=== PATIENT | male | born 1940 | race Hispanic/Latino ===

== ENCOUNTER → 2024-07-10 | Day surgery (SDC) | payer MEDICARE ==
[~2024-07-10] MED LIST: ACETAMINOPHEN 1000 MG/100 ML 100 ML IV ONE; ATORVASTATIN CA10 MG PO; BENZONATATE100 MG PO; CEFTRIAXONE 1 GM VIAL ONE; DEXAMETHASONE SOD PHOS INJ 4 MG/ML SDV ONE; EPHEDRINE SULFATE INJ 50 MG/ML VIAL ONE; FAMOTIDINE20 MG PO; FENTANYL CITRATE/PF 100MCG/2 ML INJ ONE; LEVOTHYROXINE; LIDOCAINE HCL 2% LOCAL INJ 5 ML SDV VIAL INJ ONE; MICARDIS20 MG PO; ONDANSETRON HCL INJ 2MG/ML 2ML 2 MG/ML VIAL ONE; PHENYLEPHRINE HCL 1% 10 MG/ML VIAL ONE; PROPOFOL IV EMULSION 10 MG/ML 20 ML VIAL ONE; ROBITUSSIN PO; [UNRECOGNIZED DRUG - OTHER] PO
[2024-07-10 06:27] LABS: BASOPHILS % 0.7 % (0.0-1.0); EOSINOPHILS # (AUTO) 0.3 (0.0-0.4); EOSINOPHILS % 4.2 % (0.0-6.0); HEMOGLOBIN 13.5 g/dL (14.0-18.0); LYMPHOCYTES # (AUTO) 1.7 (1.0-3.2); LYMPHOCYTES % 27.3 % (18.0-39.1); MEAN CORPUSCULAR HEMOGLOBIN 30.5 pg (28-32); MEAN CORPUSCULAR HGB CONC 32.1 g/dL (31-35); MONOCYTES # (AUTO) 0.6 (0.2-0.8); MONOCYTES % 9.1 % (4.4-11.3); NEUTROPHILS # (AUTO) 3.6 (2.1-6.9); NEUTROPHILS % 58.5 % (38.7-80.0); PLATELET COUNT 155 x10e3/uL (140-360); RED BLOOD COUNT 4.42 x10e6/uL (4.3-5.7); WHITE BLOOD COUNT 6.15 x10e3/uL (4.8-10.8)
[2024-07-10 06:44] LABS: ALBUMIN/GLOBULIN RATIO 1.1 (0.8-2.0); ANION GAP 15.9 mmol/L (8-16); BILIRUBIN,TOTAL 1.3 mg/dL (0.2-1.2); CALCIUM 9.4 mg/dL (8.4-10.2); CREATININE, SERUM 0.92 mg/dL (0.72-1.25); POTASSIUM 3.9 mmol/L (3.5-5.1); TOTAL PROTEIN 7.7 g/dL (6.5-8.1)
[2024-07-10] MEDS: LACTATED RINGER'S 1,000 ML ONE (06:45)
[2024-07-10 08:18] VITALS: TEMP 98.1
[2024-07-10] MEDS: PHENAZOPYRIDINE HCL 100 MG TAB ONE (08:35)
[2024-07-10 09:05] VITALS: BP 142/68; PULSE 78; RESP 14; O2SAT 99
== END | disposition home or self-care (01) ==
LOC: OR 05:42
PROVIDERS: ATTEND Urology
DX: C67.9 Malignant neoplasm of bladder, unspecified (principal); N13.70 Vesicoureteral-reflux, unspecified; Z90.6 Acquired absence of other parts of urinary tract; N13.30 Unspecified hydronephrosis; N39.0 Urinary tract infection, site not specified; N40.0 Benign prostatic hyperplasia without lower urinary tract symptoms; I10 Essential (primary) hypertension; E78.5 Hyperlipidemia, unspecified; E03.9 Hypothyroidism, unspecified; K21.9 Gastro-esophageal reflux disease without esophagitis; Z79.899 Other long term (current) drug therapy
CPT/HCPCS: 36415; 52235; 74420; 80053; 85025; 87086; 88305; 93005; C1758; J0131; J0696; J1100; J2003; J2405; J2704; J3010; J7121; J2371